=== PATIENT | male | born 1960 | race Caucasian/White ===

== ENCOUNTER → 2018-03-26 | Outpatient (REF) | payer OTHER ==
[~2018-03-26] MED LIST: ESCITALOPRAM OX10 MG PO; LAMICTAL100 M1 PO; LAMICTAL100 MG OR; LAMOTRIGINE25 M1 PO; LEXAPRO10 MG OR; LEXAPRO20 MG PO; LEXAPRO5 MG PO; PERCOCET 5/325M1 TAB OR; PRAVASTATIN SOD40 MG PO
== END | disposition home or self-care (01) | DRG 556 ==
LOC: DI 12:08
PROVIDERS: ATTEND Internal Medicine
DX: M25.512 Pain in left shoulder (principal)

== ENCOUNTER 2020-12-25 11:35 | Observation (INO) | payer OTHER ==
[~2020-12-25] VITALS: Ht 177.8 cm; Wt 88.0 kg
--- NOTE | 2020-12-25 11:40 | NUR ---
PATIENT TO ROOM WITH A STEADY GAIT.
--- NOTE | 2020-12-25 12:04 | NUR ---
POC REVIEWED, AT BEDSIDE
[2020-12-25 12:16] LABS: HEMATOCRIT 41.2 % (39.0-50.0); HEMOGLOBIN 13.8 g/dl (14.0-18.0); IMMATURE GRANULOCYTES 0.1 % (0.0-5.0); MEAN CELL VOLUME 91.6 fL CALC (80.0-100.0); MEAN CORPUSCULAR HGB 30.7 pG CALC (26.0-32.0); MEAN CORPUSCULAR HGB CONC 33.5 g/dL CAL (32.0-36.0); NEUT# 5.54 thou/uL (1.82-7.42); RED BLOOD COUNT 4.5 mill/uL (4.70-6.10); RED CELL DISTRI WIDTH 12.1 % (11.5-15.5)
[2020-12-25] MEDS ORDERED: LOSARTAN POTASS50 MG PO (12:20)
[2020-12-25] MEDS ORDERED: ATORVASTATIN CA40 MG PO (12:20)
[2020-12-25] MEDS ORDERED: BENZTROPINE0.5 MG PO (12:21)
[2020-12-25] MEDS ORDERED: ABILIFY MYCITE PO (12:23)
[2020-12-25 12:33] LABS: ALBUMIN 4.3 g/dL (3.2-5.0); ALKALINE PHOSPHATASE 60 u/l (38-126); AMYLASE 63 u/l (30-110); ANION GAP 12 (6-22 (CALC)); BUN 12 mg/dL (9-20); BUN/CREATININE RATIO 12 (12-20 (CALC)); CARBON DIOXIDE 26 mmol/l (22-30); CHLORIDE 103 mmol/l (95-108); CREATININE 1.1 mg/dL (0.7-1.3); ETHYL ALCOHOL 0 mg/dl (0-30); GFR > 60 ML/MIN (>=60 (CALC)); GFR FOR AFR.AMER. > 60 ML/MIN (>=60 (CALC)); LIPASE 66 u/l (23-300); POTASSIUM 3.5 mmol/l (3.5-5.1); SGOT/AST 34 u/l (17-59); SODIUM 138 mmol/l (137-146); TOTAL PROTEIN 7.3 g/dL (6.3-8.2)
[2020-12-25 12:35] LABS: BILIRUBIN, TOTAL 1.7 mg/dL (0.0-1.4)
[2020-12-25 12:36] LABS: ACT PARTIAL THROMBO TIME 21.8 SECONDS (20.0-32.5); INTERNATIONAL NORMALIZED RATIO 1.1 RATIO (0.7-1.3); PROTHROMBIN TIME 11.4 SECONDS (9.0-12.5)
--- NOTE | 2020-12-25 13:08 | NUR ---
PATIENT COMFORTABLE. NO DISTRESS AT PRESENT. CALL DIAZ IN REACH,BED IN LOW POSITION
[2020-12-25 14:11] LABS: URINE BILIRUBIN - DIPSTICK NEGATIVE (NEGATIVE); URINE BLOOD DIPSTICK NEGATIVE (NEGATIVE); URINE COLOR YELLOW; URINE GLUCOSE - DIPSTICK NEGATIVE (NEGATIVE); URINE KETONE NEGATIVE (NEGATIVE); URINE LEUK ESTERASE NEGATIVE (NEGATIVE); URINE PROTEIN - DIPSTICK NEGATIVE (NEG-TRACE); URINE SPECIFIC GRAVITY <=1.005; URINE UROBILINOGEN - DIPSTICK 0.2 E.U./dL (0.2)
[2020-12-25 14:18] LABS: URINE NITRITE - DIPSTICK NEGATIVE (Negative)
--- NOTE | 2020-12-25 14:30 | NUR ---
DR TO BEDSIDE TO DISCUSS FINDINGS AND POC
--- NOTE | 2020-12-25 16:18 | NUR ---
REPORT CALLED TO ALEXANDREA RECEIVEING M/S NURSE IN SBAR FORMAT.
--- NOTE | 2020-12-25 16:23 | NUR ---
RECEIVED PATIENT FROM ED AT THIS TIME VIA WHEELCHAIR. PATIENT IS ALERT AND ORIENTED X 3 PATIENT GREYSON ANY PAIN AT THIS TIME. PATIENTS SPEECH IS CLEAR NEURO CHECK ARE NEGATIVE AND GRASP ARE STRONG. PATIENT PRESENTS WITHOUT SKIN ISSUES OR EDEMA AT THIS TIME. LUNG AKHTAR ARE CLEAR IN ALL AKHTAR. PATIENT HAS ACTIVE BOWEL SOUNDS IN ALL FOUR QUADS AND STATES HE HAD A "NORMAL BOWEL MOVEMENT THIS AM". PATIENT IS VERY SHAKEY AND STATES HE HAS BEEN RECENTLY DIAGANOSISED WITH TARTIVE DYSKINESIA. PATIENT STATED HIS PCP PUT HIM ON A MEDICATION THAT HE COULD NOT RECALL THE NAME AND HE STARTED SHAKING AFTER HE STARTED THE MEDICATION AND WAS ADVISED TO STOP. PATIENTS IS AT BEDSIDE. MEND EXAM SHOWED NEGATIVE RESULTS AT THIS TIME. TELE MONITOR ON AND READING S-R AT 85 CURRENTLY. SIDERAILS ARE UP CALL LIGHT WITHIN REACH PATIENT ROOM SAFETY GONE OVER AND CALL LIGHT AND PATIENT VERBALIZES UNDERSTANDING OF NOT GETTING UP WITHOUT HELP.
--- NOTE | 2020-12-25 16:24 | NUR ---
PATIENT TRANSFERRED TO [facility] VIA . STABLE UPON DC.
[2020-12-25 16:57] VITALS: BP 151/86
[2020-12-25 19:45] VITALS: BP 130/74
--- NOTE | 2020-12-25 19:45 | NUR ---
PHYSICAL ASSESMENT COMPLETE. PT CURRENTLY DENIES PAIN OR DISCOMFORT. SCHEDULED MEDICATIONS AND PRN MEDICATION ADMINISTERED, SEE E-MAR. PT DENIES ANY NEEDS AT THIS TIME. PLAN OF CARE REVIEWED, PT DENIES QUESTIONS, VERBALIZES UNDERSTANDING. ITEMS WITHIN REACH, BED LOCKED IN LOW POSITION W/ BEDRAILS UP X2. CALL DIAZ WITHIN REACH, AGREES TO CALL PRN.
--- NOTE | 2020-12-26 | NUR ---
PT LAYING IN BED WITH EYES CLOSED, APPEARS TO BE SLEEPING, APPEARS COMFORTABLE AND IN NO DISTRESS. RESPIRATIONS REGULAR AND UNLABORED. ITEMS REMAIN WITHIN REACH, CALL DIAZ REMAINS WITHIN REACH. BED REMAINS LOCKED AND IN LOW POSITION WITH BEDRAILS UP X2. WILL CONTINUE TO MONITOR.
[2020-12-26 04:00] VITALS: BP 128/74
--- NOTE | 2020-12-26 04:54 | NUR ---
PT RESTING IN BED, NO SIGNS OF DISTRESS NOTED, RESP EVEN AND UNLABORED. PT VOICES NO NEEDS OR COMPLAINTS AT THIS TIME. CALL LIGHT IN REACH, CONTINUE TO MONITOR.
[2020-12-26 07:43] VITALS: BP 134/81
--- NOTE | 2020-12-26 08:02 | NUR ---
SHIFT CHANGE REPORT, PT AWAKE ALERT AND ORIENTED, DENIES DISCOMFORT, IVF INFUSING TO SITE IN RAC, TELE MONITOR IN PLACE, ASSISTED TO BR AND BACK TO BED, ATE MEAL, CALL DIAZ IN REACH AND BED LOCKED IN LOWEST POSITION.
[2020-12-26 10:50] VITALS: BP 138/75
--- NOTE | 2020-12-26 12:00 | NUR ---
MD ROUNDED, DISCUSSED D/C PLANS WITH PT BUT TELE WEB MASTER REPORTED HR IN 130'S THEREFORE MD ADVISED TO DELAY D/C AND KEEP PT OVERNIGHT FOR FURTHER OBSERVATION. PT WAS INFORMED OF PLANS, ASKED TO EXPLAIN TO SPOUSE, SHE WAS INFORMED OF PLAN AND ALL HER QUESTIONS WERE ADDRESSED, BOTH STATED UNDERSTANDING.
[2020-12-26 14:40] VITALS: BP 133/75
--- NOTE | 2020-12-26 16:00 | NUR ---
RESTING IN BED NO NEW COMPLAINS, ALL NEEDS ADDRESSED.
[2020-12-26 19:00] VITALS: BP 148/79
[2020-12-27 00:51] VITALS: BP 135/73
--- NOTE | 2020-12-27 01:15 | NUR ---
PT GOT UP IN CONFUSION AND PULLED IV AND TELEMENTRY.
--- NOTE | 2020-12-27 01:50 | NUR ---
PT PULLED OUT IV. PT STATE IVS JUST FALL OUT. PT FOUND WITHOUT CLOTHING, TELEMENTRY OR IV. WILL REPLACE IV WHEN PT IS LESS CONFUSED AND AGITATED. WILL CONTINUE TO MONITOR.
[2020-12-27 04:30] VITALS: BP 141/84
--- NOTE | 2020-12-27 05:45 | NUR ---
PT AMS, NOT ORIENTED TO SURROUNDINGS. PT REMOVED TELEMENTRY AAND IV. REORIENTED. WILL CONTINUE TO MONITOR.
--- NOTE | 2020-12-27 08:00 | NUR ---
SHIFT CHANGE REPORT, PT AWAKE AND ALERT,ORIENTED TO PLACE AND PERSON, REORIENTED TO TIME, SITTING UP IN RECLINER, ANXIOUS TO GO HOME AND GETTING DRESSED TO LEAVE. NO IV CATHETER IN PLACE, HS RN REPORTED PT REMOVED CATHETERS X2, TELE MONITOR IN PLACE, CONUES TO DISPLAY SIGNS OF IS TARDIVE DYSKINESIA AND ADVISED TO CALL FOR ASSIST WHEN AMBULATING, CALL DIAZ IN REACH, WILL CONTINUE TO MONITOR.
[2020-12-27 09:22] VITALS: BP 179/95
[2020-12-27 10:00] VITALS: BP 181/92
[2020-12-27 10:30] VITALS: BP 152/86
--- NOTE | 2020-12-27 13:18 | NUR ---
Discharge instructions given. Patient verbalizes understanding of same. Discharged in stable condition via Wheelchair to Home with spouse. All belongings sent with pt.
== END 2020-12-27 13:10 | disposition home or self-care (01) | DRG 312 ==
LOC: ED 11:35 → MS2 14:40
PROVIDERS: ADMIT Internal Medicine; ATTEND Internal Medicine
DX: R55 Syncope and collapse (principal); R53.1 Weakness; I44.7 Left bundle-branch block, unspecified; R00.0 Tachycardia, unspecified; G24.01 Drug induced subacute dyskinesia; T43.595A Adverse effect of other antipsychotics and neuroleptics, initial encounter; I10 Essential (primary) hypertension; F31.9 Bipolar disorder, unspecified; E78.5 Hyperlipidemia, unspecified; Z86.73 Personal history of transient ischemic attack (TIA), and cerebral infarction without residual deficits; Z20.822 Contact with and (suspected) exposure to COVID-19
CPT/HCPCS: G0378; J1650; Q9967

== ENCOUNTER 2024-06-02 09:50 | Observation (INO) | payer OTHER ==
[2024-06-02] VITALS (18 sets, daily range): BP systolic 117–147; BP diastolic 55–96
[~2024-06-02] VITALS: Ht 177.8 cm; Wt 75.4 kg
[~2024-06-02 09:50] MED LIST changes: +ABILIFY MYCITE PO; +ATORVASTATIN CA40 MG PO; +BENZTROPINE0.5 MG PO; +LOSARTAN POTASS50 MG PO
--- NOTE | 2024-06-02 09:51 | NUR ---
PT ALREADY IN THE [facility], IN WAITING ROOM
[2024-06-02] MEDS ORDERED: ASPIRIN 81 MG/TAB PO ONE (09:55)
--- NOTE | 2024-06-02 10:00 | NUR ---
PT WALKED BACK TO ER ROOM 15 WITH A STEADY GAIT, PT REFUSED A WHEELCHAIR ESCORT
[2024-06-02] MEDS ORDERED: Iopamidol 370 (Isovue) 76% 100 ML SDV IV ONE ×2 (10:10)
[2024-06-02 10:14] LABS: BASO% 0.4 % (0-3); EOS% 1.1 % (0-8); HEMATOCRIT 40.6 % (39.0-50.0); HEMOGLOBIN 13.4 g/dl (14.0-18.0); IMMATURE GRANULOCYTES 0.1 % (0.0-5.0); LYMPH% 16.9 % (15-41); MEAN CELL VOLUME 94.2 fL CALC (80.0-100.0); MEAN CORPUSCULAR HGB 31.1 pG CALC (26.0-32.0); MONO% 7.3 % (2-13); NEUT# 7.89 thou/uL (1.82-7.42); NEUT% 74.2 % (42-76); RED BLOOD COUNT 4.31 mill/uL (4.70-6.10); RED CELL DISTRI WIDTH 11.6 % (11.5-15.5)
--- NOTE | 2024-06-02 10:14 | NUR ---
BLOOD GLUCOSE 90
[2024-06-02 10:29] LABS: ALBUMIN 4.3 g/dL (3.2-5.0); ALKALINE PHOSPHATASE 55 u/l (38-126); ANION GAP 14 (6-22 (CALC)); BILIRUBIN, TOTAL 1.1 mg/dL (0.2-1.3); BUN 19 mg/dL (8-23); BUN/CREATININE RATIO 17 (12-20 (CALC)); CARBON DIOXIDE 26 mmol/l (22-30); CHLORIDE 103 mmol/l (95-108); CREATININE 1.1 mg/dL (0.7-1.3); ESTIMATED GFR 76 ML/MIN (>=90 (CALC)); POTASSIUM 4.2 mmol/l (3.5-5.1); SGOT/AST 33 u/l (19-48); SODIUM 139 mmol/l (137-146)
[2024-06-02 10:30] LABS: CHOLESTEROL HDL RATIO 1.6 (<4.4 (CALC))
--- NOTE | 2024-06-02 11:23 | NUR ---
Reassessment of patient completed. No distress noted. AT BEDSIDE
--- NOTE | 2024-06-02 12:30 | NUR ---
MD AT BEDSIDE TO DISCUSS RESULTS AND POC
[2024-06-02 12:49] LABS: URINE BILIRUBIN - DIPSTICK Negative (NEGATIVE); URINE BLOOD DIPSTICK Negative (NEGATIVE); URINE COLOR Yellow; URINE GLUCOSE - DIPSTICK Negative (NEGATIVE); URINE KETONE Negative (NEGATIVE); URINE LEUK ESTERASE Negative (NEGATIVE); URINE NITRITE - DIPSTICK Negative (Negative); URINE PROTEIN - DIPSTICK Negative (NEG-TRACE); URINE UROBILINOGEN - DIPSTICK 0.2 E.U./dL (0.2)
--- NOTE | 2024-06-02 13:29 | NUR ---
MD AT BEDSIDE TO DISCUSS RESULTS AND POC
--- NOTE | 2024-06-02 13:49 | NUR ---
DR SALMON AT BEDSIDE
--- NOTE | 2024-06-02 14:30 | NUR ---
PT AMBULATED TO BATHROOM WITH STEADY GAIT
[2024-06-02] MEDS ORDERED: METFORMIN500 M2 PO (14:51)
[2024-06-02] MEDS ORDERED: ASPIRINCHW 81MG PO (14:53)
--- NOTE | 2024-06-02 15:30 | NUR ---
Reassessment of patient completed. No distress noted.
[2024-06-02] MEDS ORDERED: ACETAMINOPHEN 325 MG/TAB PO PRN (15:35)
[2024-06-02] MEDS ORDERED: MAGNESIUM HYDROXIDE 30 ML UDC PO PRN (15:35)
[2024-06-02] MEDS ORDERED: ABILIFY5 MG PO (16:25)
--- NOTE | 2024-06-02 16:45 | NUR ---
TOLERATING PO FOODS AND FLUIDS WITHOUT DIFFICULTY. DENIES NEEDS.
[2024-06-02] MEDS ORDERED: INSULIN LISPRO 100 UNITS/ML ML SC SCH (17:00)
--- NOTE | 2024-06-02 18:15 | NUR ---
PT AMBULATED TO BATHROOM WITH STEADY GAIT.
--- NOTE | 2024-06-02 18:58 | NUR ---
REPORT TO PENNIE QUINONES
--- NOTE | 2024-06-02 19:00 | NUR ---
RECEIVED REPORT FROM JONI GEORGE AT THIS TIME. PT NOTED WITH NO DEFECITS, FAMILY VOICES PT AT BASELINE AT THIS TIME. PT UPATED ON AWAITING RM ASSIGNMENT ON MS2 AT THIS TIME, VOICES UNDERSTANDING, DENIES CP OR SOB AT THIS TIME.
--- NOTE | 2024-06-02 20:04 | NUR ---
REPORT CALLED TO JONI CARDENAS AT THIS TIME.
--- NOTE | 2024-06-02 20:15 | NUR ---
PT ARRIVED TO [facility] VIA WHEELCHAIR NO DISTRESS NOTED. PT ABLE TO AMBULATE WITHOUT ANY DIFFICULTY. SKIN INTACT. NO CP OR SOB AT THIS TIME. NIH 0. CALL LIGHT WITHIN REACH. PT STATED UNDERSTANDING ON HOW TO USE IT. PLAN OF CARE REVIEW WITH PT.
--- NOTE | 2024-06-02 20:15 | NUR ---
PT TRANSPORTED TO [facility] AT THIS TIME VIA W/C, NURSE AT BEDSIDE, PT REMAINS AT BASELINE, NO DEFECITS NOTED.
[2024-06-02] MEDS ORDERED: ENOXAPARIN SODIUM 40 MG/0.4 ML SYR SC SCH (21:00)
[2024-06-02] MEDS ORDERED: BENZTROPINE MESYLATE 0.5 MG TAB PO SCH (21:00)
--- NOTE | 2024-06-03 | NUR ---
PT RESTING NO DISTRESS NOTED ON EXAM. CALL LIGHT WITHIN REACH. NIH 0. PLAN OF CARE ONGOING.
[2024-06-03 03:31] VITALS: BP 109/66
--- NOTE | 2024-06-03 03:56 | NUR ---
PT RESTING NO DISTRESS NOTED. NEW IV PLACE ON RIGHT ARM SINCE PRIOR ONE CAME OFF DURING HIS SLEEP. CALL LIGHT WITHIN REACH. PLAN OF CARE ONGOING.
[2024-06-03 05:38] LABS: CREATININE 1.1 mg/dL (0.7-1.3); MAGNESIUM 2.2 mg/dL (1.6-2.3); POTASSIUM 4.2 mmol/l (3.5-5.1); TOTAL PROTEIN 6.4 g/dL (6.3-8.2)
[2024-06-03 05:43] LABS: BASO% 0.8 % (0-3); EOS% 1.8 % (0-8); HEMATOCRIT 42.7 % (39.0-50.0); HEMOGLOBIN 14.3 g/dl (14.0-18.0); IMMATURE GRANULOCYTES 0.1 % (0.0-5.0); LYMPH% 28.4 % (15-41); MEAN CELL VOLUME 95.1 fL CALC (80.0-100.0); MEAN CORPUSCULAR HGB 31.8 pG CALC (26.0-32.0); MEAN CORPUSCULAR HGB CONC 33.5 g/dL CAL (32.0-36.0); MONO% 9.1 % (2-13); NEUT# 4.61 thou/uL (1.82-7.42); NEUT% 59.8 % (42-76); RED BLOOD COUNT 4.49 mill/uL (4.70-6.10); RED CELL DISTRI WIDTH 11.8 % (11.5-15.5)
[2024-06-03 07:03] VITALS: BP 128/70
[2024-06-03] MEDS ORDERED: ATORVASTATIN CALCIUM 40 MG/TAB PO SCH (09:00)
[2024-06-03] MEDS ORDERED: ASPIRIN 81 MG/TAB PO SCH (09:00)
[2024-06-03] MEDS ORDERED: ESCITALOPRAM 10 MG/TAB PO SCH (09:00)
[2024-06-03] MEDS ORDERED: ARIPiprazole 10 MG/TAB PO SCH (09:00)
[2024-06-03] MEDS ORDERED: LOSARTAN Potassium 50 MG/TAB PO SCH (09:00)
== END 2024-06-03 12:58 | disposition home or self-care (01) | DRG 69 ==
LOC: ED 09:50 → ED-I 13:20 → ED 13:55 → ED-I 13:56 → MS2 19:34
PROVIDERS: Family Medicine; Nurse Practitioner Family; ADMIT Internal Medicine; ATTEND Internal Medicine
DX: G45.9 Transient cerebral ischemic attack, unspecified (principal); R07.89 Other chest pain; I10 Essential (primary) hypertension; E11.9 Type 2 diabetes mellitus without complications; I44.7 Left bundle-branch block, unspecified; E78.1 Pure hyperglyceridemia; F31.9 Bipolar disorder, unspecified; G24.01 Drug induced subacute dyskinesia; Z79.84 Long term (current) use of oral hypoglycemic drugs
CPT/HCPCS: G0378; J1650; Q9967

== ENCOUNTER 2024-07-09 14:58 | Emergency (ER) | payer OTHER ==
[2024-07-09] VITALS (8 sets, daily range): BP systolic 98–146; BP diastolic 68–94
[~2024-07-09] VITALS: Ht 177.8 cm; Wt 78.0 kg
[~2024-07-09 14:58] MED LIST changes: +ABILIFY5 MG PO; +ASPIRINCHW 81MG PO; +METFORMIN500 M2 PO
[2024-07-09] MEDS ORDERED: PAXLOVID PO (16:41)
== END 2024-07-09 16:45 | disposition home or self-care (01) | DRG 179 ==
LOC: ED 14:58
DX: U07.1 COVID-19 (principal); J02.9 Acute pharyngitis, unspecified; R68.83 Chills (without fever); I10 Essential (primary) hypertension; E78.00 Pure hypercholesterolemia, unspecified; F31.9 Bipolar disorder, unspecified
CPT/HCPCS: J1100